=== PATIENT | male | born 1975 | race Caucasian/White ===

== ENCOUNTER 2016-12-22 10:14 | Inpatient (IN) | payer OTHER ==
[~2016-12-22] VITALS: Ht 182.9 cm; Wt 90.7 kg
[2016-12-23 00:10] VITALS: BP 126/65
--- NOTE | 2016-12-23 00:10 | NUR ---
PRE-ADMISSION NOTE SEEN PATIENT IN INTAKE. PATIENT ALERT AND ORIENTED X 4. RESPIRATION EVEN AND UNLABORED. VS BP-126/65 T. P-82 R 16 PA- 5/10 GENERALIZED BODY ACHES. SPO2 AT 98% ON RA. PATIENT AMBULATORY AND HAS STEADY GAIT. PATIENT STATES HE DOES NOT HAVE ANY ALLERGIES TO FOOD AND MEDS .WILL CONTINUE ADMISSION PROCESS. .
--- NOTE | 2016-12-23 00:20 | NUR ---
ADMISSION NOTE PATIENT ARRIVED IN THE UNIT AT THIS TIME. PATIENT IS A 41 YEAR OLD MALE WHO PRESENTS TO [facility] FOR ETOH/METH/COCAINE DEPENDENCE. HEIGHT IS 60 AND WEIGHT IS 200 LBS. BODY CHECK DONE. PATIENT NOTED WITH CUT ON HIS LEFT ARM ,PATIENT STATES HE ACCIDENTALLY CUT HIMSELF WITH A SAW. APPEARS TO BE HEALING. NO S/S OF INFECTION. LUNGS CLEAR AND BOWEL SOUNDS ACTIVE ON ALL QUADRANT. ABDOMEN SOFT AND NON-DISTENDED. PATIENTS BOTH EYES ARE RED. NO DISCHARGE NOTED. PATIENT REQUESTED TO BE FULL CODE AND ON REGULAR DIET. PATIENT DENIES PAST MEDICAL HISTORY. PATIENT STATES HE HAD PINK EYE 6 MONTHS AGO. NO SEIZURE HISTORY. PATIENT IS A BAZAN AND HE LIVES WITH HIS AND 5 KIDS IN [facility]. PATIENT IS THE SOURCE OF INFORMATION . PATIENTS DRUG OF CHOICE ARE FF: ALCOHOL (WHITE WINE)- DRINKING SINCE AGE 15. PATIENT DRINKS 4-6 GLASS DAILY FOR A YEAR. LAST DRINKS WAS 2 BOTTLES OF WHITE WINE AND 3 SHOTS OF WHISKEY METHAMPHETAMINE IV/ORALLY- SINCE AGE 17 . PATIENT USE 1 GRAM DAILY FOR A COUPLE OF MONTHS. LAST USE WAS 1 GRAM ON 1 12/23/16 COCAINE (IV)-SINCE AGE IV/SNORT/ORALLY-SINCE AGE 17. PATIENT INJECTS 1 GRAM DAILY FOR COUPLE OF MONTHS. LAST USE WAS ON 12/18/16 , UNABLE TO RECALL AMOUNT. PATIENT STATES ITS HIS FIRST TIME IN TREATMENT CENTER. PATIENTS PCP IS DR. ARMEN GIANG. PATIENT ADMITTED USING TESTOSTERONE ONCE A WEEK . PATIENT CHEW TOBACCO FOR 17 YEARS. WILL CALL MD AND WILL GIVE DETAIL REPORT. PATIENT ORIENTED TO SURROUNDINGS AND HOW TO USE CALL LIGHT . PATIENT WAS PLACED ON FALL/SEIZURE PRECAUTION . SAFETY MEASURES IN PLACE. CALL LIGHT IN REACH. WILL CONTINUE TO MONITOR. Addendum: 12/23/16 at 0602 by CRISTIN NEGRETE LVN PATIENT BROUGHT HOME MEDS-RECONCILED. PATENT HAS CIWA OF 3 UPON ADMISSION.
[2016-12-23] MEDS ORDERED: ACETAMINOPHEN 325 MG TABLET PO PRN (00:30)
[2016-12-23] MEDS ORDERED: MIRALAX 17 GM POWD.PACK PO PRN (00:30)
[2016-12-23] MEDS ORDERED: THIAMINE HCL 200 MG/2 ML VIAL IM ONE (00:30)
[2016-12-23] MEDS ORDERED: LOPERAMIDE HCL 2 MG CAPSULE PO PRN ×2 (00:30)
[2016-12-23] MEDS ORDERED: LORAZEPAM 1 MG TABLET PO PRN ×2 (00:30)
[2016-12-23] MEDS ORDERED: CLONIDINE HCL 0.1 MG TABLET PO PRN (00:30)
[2016-12-23] MEDS ORDERED: LORAZEPAM 2 MG/1 ML VIAL IM PRN (00:30)
[2016-12-23] MEDS ORDERED: MAG HYDROX/AL HYDROX/SIMETH 30 ML LIQUID UDC PO PRN (00:30)
[2016-12-23] MEDS ORDERED: DICYCLOMINE HCL 20 MG TABLET PO PRN (00:30)
[2016-12-23] MEDS ORDERED: MAGNESIUM HYDROXIDE 30 ML LIQUID UDC PO PRN (00:30)
[2016-12-23] MEDS ORDERED: ONDANSETRON ODT 4 MG TAB.RAPDIS SL PRN (00:30)
[2016-12-23 00:35] LABS: *AMPHETAMINE, URINE POSITIVE (NEGATIVE); *BARBITURATE, URINE NEGATIVE (NEGATIVE); *CANNABINOID, URINE NEGATIVE (NEGATIVE); *COCCAINE, URINE NEGATIVE (NEGATIVE); *OPIATE, URINE NEGATIVE (NEGATIVE); *PHENCYCLIDINE SCREEN,URINE NEGATIVE (NEGATIVE)
[2016-12-23] MEDS: IBUPROFEN 400 MG TABLET PO PRN ×3 (01:13→20:40)
[2016-12-23] MEDS: diphenhydrAMINE 50 MG CAPSULE PO PRN (01:13)
[2016-12-23] MEDS ORDERED: diphenhydrAMINE 50 MG CAPSULE ONE (01:13)
[2016-12-23] MEDS ORDERED: IBUPROFEN 400 MG TABLET ONE (01:13)
--- NOTE | 2016-12-23 01:13 | NUR ---
PRN BENADRYL AND MOTRIN GIVEN PATIENT C/O UNABLE TO SLEEP AND GENERALIZED BODY PAIN 5/10. PRN MEDS GIVEN. WILL MONITOR FOR EFFECTIVENESS
[2016-12-23 01:32] LABS: BASOPHILS % (AUTO) 0.6 % (0.0-2.0); EOSINOPHILS # (AUTO) 0.3 K/uL (0.0-0.7); EOSINOPHILS % (AUTO) 4.7 % (0.0-7.0); HEMATOCRIT 46.3 % (40-50); LYMPHOCYTES # (AUTO) 2.5 K/UL (0.8-4.8); LYMPHOCYTES % (AUTO) 36.9 % (20.5-51.5); MEAN CORPUSCULAR HEMOGLOBIN 30.5 UUG (27.0-31.0); MEAN CORPUSCULAR HGB CONC 35 g/dL (32.0-37.0); MEAN CORPUSCULAR VOLUME 88.2 FL (82.0-92.0); MONOCYTES # (AUTO) 0.6 K/UL (0.1-1.30); MONOCYTES % (AUTO) 9.2 % (0.0-11.0); NEUTROPHILS # (AUTO) 3.5 K/UL (1.8-8.9); NEUTROPHILS % (AUTO) 48.6 % (38.5-71.5); PLATELET COUNT (AUTO) 298 K/UL (150-450); RED BLOOD CELL COUNT(AUTO) 5.25 MIL/UL (4.7-6.1); WHITE BLOOD COUNT (AUTO) 6.9 K/UL (4.0-11.2)
[2016-12-23] MEDS ORDERED: ARGI500T4 PO (01:38)
[2016-12-23] MEDS ORDERED: ZINC (01:38)
[2016-12-23] MEDS ORDERED: OMEG-49 PO (01:38)
[2016-12-23] MEDS ORDERED: GLUC1TAB20 PO (01:38)
[2016-12-23 01:43] LABS: BILIRUBIN,TOTAL 0.5 mg/dL (0.2-1.0); CREATININE 1.1 mg/dL (0.6-1.3); MAGNESIUM 1.8 mg/dL (1.8-2.4); POTASSIUM 3.8 mmol/L (3.5-5.1); TOTAL PROTEIN, SERUM 7.5 g/dL (6.4-8.2)
[2016-12-23 01:53] LABS: THYROID STIMULATING HORMONE 0.528 mIU/mL (0.358-3.740)
--- NOTE | 2016-12-23 02:13 | NUR ---
PRN MEDS RE-ASSESSMENT PATIENT ASLEEP AT THIS TIME. NO S/S OF DISTRESS. WILL CONTINUE TO MONITOR .
[2016-12-23 04:00] VITALS: BP 118/65
--- NOTE | 2016-12-23 07:31 | NUR ---
END OF SHIFT NOTE PATIENT IS A 38 YEAR OLD MALE, ADMITTED FOR ETOH/METH/COCAINE DEPENDENCE. PATIENT IS FULL CODE, REGULAR DIET AND NO KNOWN ALLERGY. PATIENT DENIES ANY PAST MEDICAL HISTORY. DENIES SEIZURE HISTORY. PATIENTS DRUG OF CHOICE ARE ALCOHOL (WHITE WINE) , METHAMPHETAMINE IV/PO AND COCAINE IV/SNORT/SMOKE. FIRST TIME IN DETOX. ON FALL/SEIZURE PRECAUTION. PATIENT WAS GIVEN THIAMINE INJECTION ON RIGHT DELTOID., PRN BENADRYL AND MOTRIN. SLEPT 4 HOURS. FLUID INTAKE OF 1,000 ML. VOIDED X 1. NO BM. LAST CIWA 1.
--- NOTE | 2016-12-23 07:39 | NUR ---
START OF SHIFT NOTE Received report from night nurse, 41 year old male admitted for Cocaine/Meth/ETOH dependence. Full code, NKA, Regular diet. Pt did not report any PMH. Pt received PRN Motrin/ Benadryl effective per night nurse, slept for 4 hours, last CIWA-1. Received pt resting in his room in stable condition, responsive to verbal and tactile stimuli. Skin warm and dry to touch. Breathing normal no SOB noted. All safety measures in place, Call light within reach. Will cont to monitor.
[2016-12-23 08:00] VITALS: BP 114/62
[2016-12-23] MEDS: FOLIC ACID 1 MG TABLET PO SCH (08:28)
[2016-12-23] MEDS: MULTIVITAMINS,THERAPEUTIC TABLET PO SCH (08:28)
[2016-12-23] MEDS: THIAMINE HCL 100 MG TABLET PO SCH (08:29)
[2016-12-23] MEDS ORDERED: TUBERCULIN,PURIF.PROT.DERIV. 5 TU/0.1 ML TEST ID ONE (09:00)
[2016-12-23 12:00] VITALS: BP 105/60
[2016-12-23] MEDS: HYDROXYZINE PAMOATE 25 MG CAPSULE PO PRN (12:27)
--- NOTE | 2016-12-23 12:27 | NUR ---
PRN MEDS Pt reported general body aches 5/10 and anxiety agitation. Administered PRN Motrin 400mg 1 tab Po, Vistaril 50mg Po as ordered. Will cont to monitor and reassess the pt.
[2016-12-23] MEDS: ERYTHROMYCIN 0.5% OPHT OINT 3.5 GM TUBE EACHEYE SCH ×2 (12:55→20:41)
--- NOTE | 2016-12-23 12:55 | NUR ---
NEW ORDER' Pt was seen and evaluated by Dr. Croft with new order of Erythromycin oint for both eye infection, Administered medication as ordered no s/s of adverse reaction noted. Educate the pt for good hand washing and good eye care. Will cont to monitor.
--- NOTE | 2016-12-23 13:27 | NUR ---
REASSESSMENT Pt reported medication effective anxiety, agitation subside and body aches decreased to 2/10. Will cont to monitor.
[2016-12-23] MEDS: LORAZEPAM 1 MG TABLET PO SCH ×2 (14:23→20:41)
[2016-12-23 16:00] VITALS: BP 123/65
--- NOTE | 2016-12-23 19:04 | NUR ---
END OF SHIFT NOTE Gave report to night nurse, 41 year old male admitted for Cocaine/Meth/ETOH dependence. Full code, NKA, Regular diet. Pt did not report any PMH. During shift pt medicated with PRN Motrin/ Vistaril noted to be effective. Pt also started on Erythromycin antibiotic for both eyes infection. Pt started on Ativan taper. VS WNL. Pt remained in stable condition. Breathing normal no SOB noted. Skin warm and dry to touch. Last CIWA-3. Encouraged Po fluids as tolerated. All safety measures in place, Call light within reach. Pt endorsed to night nurse in stable condition.
--- NOTE | 2016-12-23 19:15 | NUR ---
Start of Shift Note: Patient is a 41 y/o male admitted on 12/22/16 for ETOH dependence. Patient reported drinking 4-6 glass of white wine daily for 1 year. Patient also uses Meth IV/PO 1 gram daily & Cocaine 1 gram daily for a couple of months. Patient denies past medical history. No seizure history noted. Patient is on a regular diet with no known food and drug allergies. Full Code status. Fall and Seizure precaution. Patient is on ATB erythromycin ointment for eye redness. Skin intact. Patient started today on a Ativan taper and tolerating well. Last CIWA is 3. Patient was given PRN Motrin and Vistaril during day shift. Patient is alert & oriented x4. Patient in bed with eyes close. No shortness of breath noted. Respiration even & unlabored. Abdomen soft & non-distended. No nausea noted. Patient complains of 5/10 body aches and mild headache. Slight sweating noted. Patient denies hallucinations. Safety precautions are in place. Bed locked in lowest position. Both side rails up. Call light within pts reach. Will continue to monitor patient.
[2016-12-23 20:00] VITALS: BP 111/57
--- NOTE | 2016-12-23 20:40 | NUR ---
PRN Motrin Patient complains of 5/10 body aches and mild headache. PRN Motrin administered as ordered. Will reassess in 1 hour. Will continue to monitor patient.
--- NOTE | 2016-12-23 21:40 | NUR ---
PRN Reassessment Patient asleep at this time and appears comfortable. No facial grimacing noted. Safety precautions are in place. Will continue to monitor.
[2016-12-24] VITALS: BP 109/65
[2016-12-24 04:00] VITALS: BP 119/64
[2016-12-24] MEDS: ERYTHROMYCIN 0.5% OPHT OINT 3.5 GM TUBE EACHEYE SCH ×3 (05:24→21:02)
--- NOTE | 2016-12-24 07:00 | NUR ---
Start of Shift Report from night nurse: pt is a41 y.o male here for Etoh r/t 4-6 glasses of Wine per day for a yr, Methamphetamine 1gIV /d for a few months and Cocaine abuse IV, snorted or smoked 1g/d for a couple of months; 4 day Ativan taper ordered, and no Subutex ordered to start until 12/24/16 after evaluation. Pt is a full code, regular diet, NKA, fall and seizure precautions ordered. HHx: first time doing detox pt is a non-smoker and denies past medical hx and no surgical hx. V/S stable. Skin is intact, yet pt has bilateral eye inflammation with ordered topical atbx eye gtts scheduled and a a scar on the left arm from a past cut that is healing. PRN Motrin given last night for a STACK. No new orders, labs or recommendations endorsed to me. Last CIWA 5. Pt is asleep in his room. Will cont. to monitor the pt.
--- NOTE | 2016-12-24 07:16 | NUR ---
End of Shift Note: Endorse pt to day shift nurse. Pt continues on his Ativan taper and tolerating well. Patient is on ATB erythromycin ointment for eye redness. Patient has been in his room my whole shift. Patient is compliant with medications, treatment and plan of care. Pt reported taper medications is effective in controlling his withdrawal symptoms. Last CIWA is 4. PRN Motrin given last night for headache and was effective. Pt remained stable and vitals remains WNL. Pt slept for a total of 11 hours. Encourage pt to increase Pt consumed 520ml of fluid. Voided 1x with no bowel movement. All needs attended & met. Safety precautions are in place Will continue to monitor patient.
[2016-12-24 08:00] VITALS: BP 89/65
[2016-12-24 08:11] LABS: HEPATITIS B SURFACE AG Negative (Negative)
[2016-12-24] MEDS: IBUPROFEN 400 MG TABLET PO PRN ×3 (09:02→21:02)
[2016-12-24] MEDS: THIAMINE HCL 100 MG TABLET PO SCH (09:02)
[2016-12-24] MEDS: FOLIC ACID 1 MG TABLET PO SCH (09:02)
[2016-12-24] MEDS: MULTIVITAMINS,THERAPEUTIC TABLET PO SCH (09:02)
[2016-12-24] MEDS: LORAZEPAM 1 MG TABLET PO SCH ×4 (09:02→21:02)
--- NOTE | 2016-12-24 09:05 | NUR ---
PRN Medication Administration Pt c/o STACK and general discomfort 10 with numbness and tingling; PRN Motrin 400mg PO PRN as ordered. Will reassess in 1H.
--- NOTE | 2016-12-24 10:00 | NUR ---
Reassessment Pt denies STACK; PRN Motrin is effective, will f/u with re: numbness and tingling.
[2016-12-24 12:00] VITALS: BP 102/56
--- NOTE | 2016-12-24 13:45 | NUR ---
PRN Medication Administration Pt c/o recurrent STACK; PRN Tylenol 650mg given as ordered. Will reassess in 1H.
--- NOTE | 2016-12-24 14:30 | NUR ---
Reassessment Pt denies STACK; Tylenol is effective. Will cont. to monitor the pt.
[2016-12-24 16:00] VITALS: BP 118/65
--- NOTE | 2016-12-24 16:40 | NUR ---
PRN Medication Administration Pt c/o general muscle discomfort with the numbness and tingling; Notified Dr. Massey of numbness and tingling, PRN Motrin 400mg given as ordered. Will reassess in 1H.
--- NOTE | 2016-12-24 19:27 | NUR ---
End of Shift Report to the night nurse: pt is a41 y.o male here for Etoh r/t 4-6 glasses of Wine per day for a yr, Methamphetamine 1gIV /d for a few months and Cocaine abuse IV, snorted or smoked 1g/d for a couple of months; 4 day Ativan taper ordered, and no SUbutex ordered to start until 12/24/16 after evaluation. Pt is a full code, regular diet, NKA, fall and seizure precautions ordered. HHx: first time doing detox pt is a non-smoker and denies past medical hx and no surgical hx. V/S stable. Skin is intact, yet pt has bilateral eye inflammation with ordered topical atbx eye gtts given as ordered and educated the pt on bilater eye hygiene and to irrigated with NS pat dry tid and HS and pt is cooperative; a scar on the left arm from a past cut that is healing. PRN Motrin given twice with last dose at 1640p and Tylenol for a STACK and general pain. No new orders, labs during my shift. Pt denies chest pain. No SOB noted. No hallucinations, delusions or suicidal ideations. Pt is w/d to self and refuses to go to group therapy during my shift; encouragement given. Last CIWA 4.
--- NOTE | 2016-12-24 19:30 | NUR ---
Start of Shift Note: Patient is a 41 y/o male admitted on 12/22/16 for ETOH dependence. Patient reported drinking 4-6 glass of white wine daily for 1 year. Patient also uses Meth IV/PO 1 gram daily & Cocaine 1 gram daily for a couple of months. Patient denies past medical history. No seizure history noted. Patient is on a regular diet with no known food and drug allergies. Full Code status. Fall and Seizure precaution. Patient is on ATB erythromycin ointment for eye redness. Skin intact. Patient has new order Gabapentin. Patient is on Ativan taper and tolerating well. Last CIWA is 4. Patient was given PRN Motrin x2 and Tylenol during day shift. Patient is alert & oriented x4. Patient in bed with eyes close. No shortness of breath noted. Respiration even & unlabored. Abdomen soft & non-distended. No nausea noted. Patient complains of mild headache. Slight sweating noted. Patient denies hallucinations. Safety precautions are in place. Bed locked in lowest position. Both side rails up. Call light within pt's reach. Will continue to monitor patient.
[2016-12-24 20:00] VITALS: BP 116/65
[2016-12-24] MEDS ORDERED: GABAPENTIN 300 MG CAPSULE PO SCH (21:00)
[2016-12-24] MEDS: diphenhydrAMINE 50 MG CAPSULE PO PRN (21:02)
--- NOTE | 2016-12-24 21:02 | NUR ---
PRN Motrin & Benadryl Patient complains of 4/10 body aches and mild headache. Pt also requested medication to help him sleep. PRN Motrin and Benadryl administered as ordered. Will reassess in 1 hour. Will continue to monitor.
--- NOTE | 2016-12-24 22:02 | NUR ---
PRN Reassessment Patient asleep in bed at this time and appears comfortable. No facial grimacing noted. Safety measures in place. Will continue to monitor patient.
[2016-12-25] VITALS: BP 122/74
[2016-12-25 04:00] VITALS: BP 106/63
[2016-12-25] MEDS: ERYTHROMYCIN 0.5% OPHT OINT 3.5 GM TUBE EACHEYE SCH ×3 (05:11→20:32)
--- NOTE | 2016-12-25 06:57 | NUR ---
End of Shift Note: Endorse pt to day shift nurse. Pt on Ativan taper and tolerating well. Patient continues on ATB erythromycin ointment for eye redness. Patient has been in his room the whole shift. Patient is compliant with medications, treatment and plan of care. Pt reported taper medications is effective in controlling his withdrawal symptoms. Per, pt he will be attending groups today. Last CIWA is 2. PRN Motrin given last night for headache and Benadryl for sleep and were effective. Pt remained stable and vitals remains WNL. Pt slept for a total of 8 hours. Encourage pt to increase Pt consumed 1000ml of fluid. Voided 1x with no bowel movement. All needs attended & met. Safety precautions are in place Will continue to monitor patient.
--- NOTE | 2016-12-25 07:00 | NUR ---
Start of Shift Notes: Received patient in his room. Alert and oriented x 4. Able to make his needs known. Respirations even and unlabored. No SOB noted. Skin warm and dry to touch. Abdomen soft and non-distended with (+) BS in all 4 quadrants. No complains of N/V/D or constipation noted. Bladder non-distended. No complains of dysuria noted. Voids independently. Ambulatory ad meredith with steady gait. Patient is a 41 year old male admitted for ETOH dependence who was placed on a 4-day Ativan taper. No adverse reactions noted. Denies any past medical hx. NKA. FULL CODE. Regular diet. On fall and seizure precautions. Educated patient on his current plan of care and his medication regimen. Encouraged oral fluid intake and encouraged group participation to learn new skills to prevent relapse. Will continue to monitor closely.
[2016-12-25 08:00] VITALS: BP 126/74
[2016-12-25] MEDS: THIAMINE HCL 100 MG TABLET PO SCH (08:27)
[2016-12-25] MEDS: MULTIVITAMINS,THERAPEUTIC TABLET PO SCH (08:27)
[2016-12-25] MEDS: GABAPENTIN 300 MG CAPSULE PO SCH ×2 (08:27→14:30)
[2016-12-25] MEDS: LORAZEPAM 1 MG TABLET PO SCH ×3 (08:27→20:32)
[2016-12-25] MEDS: FOLIC ACID 1 MG TABLET PO SCH (08:27)
[2016-12-25 12:00] VITALS: BP 126/74
--- NOTE | 2016-12-25 12:19 | NUR ---
Zofran 4 mg PO and Clonidine 0.1mg PO given: Patient noted with CIWA 9 due to nausea/vomiting x 2. Also noted with anxiety, gross tremors and facial flushing with mild agitation. Medicated patient with Zofran 4 mg ODT and Clonidine 0.1mg PO as ordered. Will monitor for effectiveness.
--- NOTE | 2016-12-25 13:19 | NUR ---
Re-assessment: No further episodes of emesis noted. Complains of nausea. Less anxiety, less tremors and less sweating noted. Patient showered and states that he feels better.
[2016-12-25 16:00] VITALS: BP 101/57
--- NOTE | 2016-12-25 18:52 | NUR ---
End of Shift Notes: Patient is a 31 year old male admitted for ETOH dependence who was placed on a 4-day Ativan taper as ordered. No adverse reactions noted. Denies any past medical hx. Currently on Erythromycin ointment for OU redness. No adverse reactions. Educated patient on good eye care. Prior to admission, patient was using 4-6 glasses of white wine for 1 year, 1 gram of methamphetamine and 1gram of cocaine. Withdrawal symptoms were closely monitored. Initial CIWA 2, patient presented with anxiety and mild agitation. VS monitored q 4 hours. No significant abnormalities noted. At 1219, patient noted with with episodes of vomiting, nausea, tremors, anxiety and sweats. CIWA 9, medicated patient with Zofran 4 mg ODT and Clonidine 0.1mg PO at 1219 with help after 1 hour. Patient was encouraged to go to group and socialize with his peers due to episodes of self isolation and is socially withdrawn. Last CIWA 4. Per patient Ativan has been helping him with his withdrawal symptoms. Oral fluids encouraged. All needs met and attended. Will continue to monitor closely. Addendum: 12/25/16 at 1852 by HERMINIA BRICENO LVN Error. Patient is 41 years old.
--- NOTE | 2016-12-25 19:15 | NUR ---
Start of Shift Note: Patient is a 41 y/o male admitted on 12/22/16 for ETOH dependence. Patient reported drinking 4-6 glass of white wine daily for 1 year. Patient also uses Meth IV/PO 1 gram daily & Cocaine 1 gram daily for a couple of months. Patient denies past medical history. No seizure history noted. Patient is on a regular diet with no known food and drug allergies. Full Code status. Fall and Seizure precaution. Patient continues on ATB erythromycin ointment for eye redness. Skin intact. Patient is on Ativan taper and tolerating well. Last CIWA is 4. Patient was given PRN Clonidine and Zofran during day shift. Patient is alert & oriented x4. No shortness of breath noted. Respiration even & unlabored. Abdomen soft & non-distended. No nausea noted. Patient complains of very mild headache. Pt denies sweating & anxiety. No hallucinations noted. Hand tremors felt Safety precautions are in place. Bed locked in lowest position. Both side rails up. Call light within pt's reach. Will continue to monitor patient.
[2016-12-25 20:00] VITALS: BP 117/63
[2016-12-25] MEDS: diphenhydrAMINE 50 MG CAPSULE PO PRN (20:33)
--- NOTE | 2016-12-25 20:33 | NUR ---
PRN Benadryl Patient requesting for medication to help him sleep. PRN Benadryl administered as ordered. Will continue to monitor patient.
[2016-12-25] MEDS ORDERED: GABAPENTIN 300 MG CAPSULE PO SCH (21:00)
--- NOTE | 2016-12-25 22:00 | NUR ---
PRN Reassessment Patient asleep in bed and appears comfortable. No shortness of breath noted. Respiration even & unlabored. Safety measures in place. Will continue to monitor patient.
[2016-12-26] VITALS: BP 95/64
[2016-12-26 04:00] VITALS: BP 111/65
[2016-12-26] MEDS: ERYTHROMYCIN 0.5% OPHT OINT 3.5 GM TUBE EACHEYE SCH ×3 (05:17→21:02)
--- NOTE | 2016-12-26 07:10 | NUR ---
Start of Shift Report from night nurse with update: pt is a 41 y.o male here for Etoh r/t 4-6 glasses of Wine per day for a yr, Methamphetamine 1gIV /d for a few months and Cocaine abuse IV, snorted or smoked 1g/d for a couple of months; 4 day Ativan taper ordered, and no Subutex ordered to start until 12/24/16 after evaluation. Pt is a full code, regular diet, NKA, fall and seizure precautions ordered. HHx: first time doing detox pt is a non-smoker and denies past medical hx and no surgical hx. V/S stable. Skin is intact, but pt still has active bilateral eye inflammation with ordered topical atbx eye gtts scheduled; pt still irrigates his eyes with NS as directed for eye hygiene and pt has a scar on the left arm from a past cut that is healing.PRN Benadryl given last night. No new orders, labs or recommendations endorsed to me. Last CIWA 2. Pt is asleep in his room. Will cont. to monitor the pt.
--- NOTE | 2016-12-26 07:15 | NUR ---
End of Shift Note: Endorse pt to day shift nurse. Pt on Ativan taper and tolerating well. Patient continues on ATB erythromycin ointment for eye redness. Patient has been in his room the whole shift. Patient is compliant with medications, treatment and plan of care. Pt reported taper medications is effective in controlling his withdrawal symptoms. Pt attended one group yesterday. Encourage to attend groups today to develop and learn new coping skills. Last CIWA is 2. PRN Benadryl given for sleep and were effective. Pt remained stable and vitals remains WNL. Pt slept for a total of 7 hours. Encourage pt to increase fluid intake. Pt consumed 1500ml of fluid. Voided 2x with no bowel movement. All needs attended & met. Safety precautions are in place Will continue to monitor patient.
[2016-12-26 08:00] VITALS: BP 123/75
[2016-12-26] MEDS: IBUPROFEN 400 MG TABLET PO PRN (09:25)
[2016-12-26] MEDS: LORAZEPAM 1 MG TABLET PO SCH ×2 (09:25→20:53)
[2016-12-26] MEDS: MULTIVITAMINS,THERAPEUTIC TABLET PO SCH (09:25)
[2016-12-26] MEDS: FOLIC ACID 1 MG TABLET PO SCH (09:25)
[2016-12-26] MEDS: THIAMINE HCL 100 MG TABLET PO SCH (09:25)
[2016-12-26] MEDS: GABAPENTIN 300 MG CAPSULE PO SCH ×3 (09:25→20:55)
--- NOTE | 2016-12-26 09:25 | NUR ---
PRN Mediation Administration Pt c/o chronic STACK; PRN Motrin 400mg given as ordered. Will reassess in 1H.
--- NOTE | 2016-12-26 10:25 | NUR ---
Reassessment Pt states STACK discomfort has decreased; PRN Motrin is somewhat effective, pt refused Tylenol. I encouraged the pt to call if he needs PRN Tylenol. Call light is in reach. Will cont. to monitor the pt.
[2016-12-26 12:00] VITALS: BP 142/79
[2016-12-26] MEDS: HYDROXYZINE PAMOATE 25 MG CAPSULE PO PRN ×2 (12:04→21:00)
--- NOTE | 2016-12-26 12:09 | NUR ---
PRN Medication Administration Pt is in room on bed very restless and anxious; PRN Vistaril given with scheduled eye ointment atbx given as ordered. Will reassess in 1H.
--- NOTE | 2016-12-26 13:38 | NUR ---
Reassessment Pt is in room eating lunch and denies anxiety; PRN Vistaril 50mg is effective. Will cont. to monitor the pt.
[2016-12-26 16:00] VITALS: BP 120/70
[2016-12-26] MEDS: CLONIDINE HCL 0.1 MG TABLET PO SCH ×2 (16:26→20:54)
--- NOTE | 2016-12-26 16:29 | NUR ---
Late Medication Administration 1500 Clonidine and Gabapentin given late since pt just got out of group.
--- NOTE | 2016-12-26 18:52 | NUR ---
End of Shift Report to night nurse: pt is a41 y.o male here for Etoh r/t 4-6 glasses of Wine per day for a yr, Methamphetamine 1gIV /d for a few months and Cocaine abuse IV, snorted or smoked 1g/d for a couple of months; 4 day Ativan taper ordered, and no Subutex ordered to start until 12/24/16 after evaluation. Pt is a full code, regular diet, NKA, fall and seizure precautions ordered. HHx: first time doing detox pt is a non-smoker and denies past medical hx and no surgical hx. V/S stable. Skin is intact, yet pt has bilateral eye inflammation with ordered topical atbx eye ointment given as ordered on bilateral eyes with NS irrigations before applying the topical atbx; a scar on the left arm from a past cut that is healing. PRN Motrin given at 0925 for a STACK and Vistaril 50mg at 1215p. No new orders or labs during my shift. Pt denies chest pain. No SOB noted. No hallucinations, delusions or suicidal ideations. Pt attended group therapy and activities during my shift. Last CIWA 2.
[2016-12-26 20:00] VITALS: BP 121/65
--- NOTE | 2016-12-26 20:00 | NUR ---
2000 Patient received awake, alert and lying supinely watching television. Patient responds to nurse's greeting with, " Kalin" Patient's color is pink and his skin is warm, dry and intact. Bilateral eye lids, top/bottom noted very slightly swollen and red Bilateral eye sclera noted moderately reddened. Patient denies any eye pain presently and he states, " Oh, you should have seen them before. My eyes are looking much better now". Patient is oriented to person, place, day, date, time and his personal situation. Vital signs are: 98.6-72-16 121/65, O2 Sat 98%, CIWA 1. Patient states that he has been doing "fine", going to [facility] groups, taking his regular diet trays and ad meredith fluids well with no real gastric issues noted. Patient was admitted on 12/22/16 for: Alcohol, Methamphetamine and Cocaine withdrawal and he is currently on a 4-Day Ativan medication taper, which he has apparently been tolerating well. Patient offers no requests or c/o anything at this time. Bed is locked and in lowest position, bed rails are up X 2 and call light within patient's easy reach.
[2016-12-26] MEDS: diphenhydrAMINE 50 MG CAPSULE PO PRN (21:00)
--- NOTE | 2016-12-26 21:00 | NUR ---
PRN MEDICATIONS: Prn Benadryl 50 mg p.o. given per request for sleep medication and Prn Vistaril 50 mg p.o. given per request for anxiety.
--- NOTE | 2016-12-26 22:00 | NUR ---
REASSESSMENT PRN MEDICATIONS: Patient is resting comfortably with eyes closed and respirations quiet, even at 14.
--- NOTE | 2016-12-27 | NUR ---
Patient refused to be awakened for V/S to be done at this time.
[2016-12-27 04:00] VITALS: BP 123/67
[2016-12-27] MEDS: ERYTHROMYCIN 0.5% OPHT OINT 3.5 GM TUBE EACHEYE SCH ×3 (04:22→20:33)
--- NOTE | 2016-12-27 06:30 | NUR ---
0630 Patient slept a total of 6 hours, 15 minutes, and he had 2 voids and no stools. Total intake was 950 ml p.o. Prn medications given noted separately per floor protocol. V/SS afebrile, last CIWA 4. There is no change in condition of patient's reddened eyes and eyelids. Patient is friendly, cooperative and verbally appropriate when awake and interacting with nurse. Patient is presently sleeping soundly in stable condition with eyes closed and respirations even at 12.
--- NOTE | 2016-12-27 07:43 | NUR ---
BEGINNING OF SHIFT Patient endorsement report received from overnight stocker nurse, all pertinent information discussed. Patient is a 41 year old male admitted on 12/22/2016, with admitting Dx: ETOH dependence. Patient completed 4 day Ativan taper as of 12/26/2016 and is under close supervision for s/sx of withdrawal, will monitor ciwa scores and vital signs as ordered. Patient with last ciwa score of: 6, as per overnight stocker. Patient received PRN: Benadryl, and Vistaril during overnight stocker, medications were effective, patient slept for 6 hours. Patient received in room, awake alert and oriented x4, educated regarding plan of care and medication regimen for the day with good verbal understanding. Safety measures in place. call light kept with in reach, will continue to monitor closely.
[2016-12-27 08:18] VITALS: BP 113/64
[2016-12-27] MEDS: FOLIC ACID 1 MG TABLET PO SCH (08:51)
[2016-12-27] MEDS: GABAPENTIN 300 MG CAPSULE PO SCH ×3 (08:51→20:33)
[2016-12-27] MEDS: MULTIVITAMINS,THERAPEUTIC TABLET PO SCH (08:51)
[2016-12-27] MEDS: THIAMINE HCL 100 MG TABLET PO SCH (08:51)
[2016-12-27 08:52] VITALS: BP 122/72
[2016-12-27] MEDS: CLONIDINE HCL 0.1 MG TABLET PO SCH ×3 (08:53→20:33)
[2016-12-27] MEDS: IBUPROFEN 400 MG TABLET PO PRN (11:53)
--- NOTE | 2016-12-27 11:53 | NUR ---
PRN MOTRIN Patient c/o headache 12/26, provided with non pharmacological interventions with no relief, administered Motrin as ordered, will monitor effectiveness.
--- NOTE | 2016-12-27 12:53 | NUR ---
MOTRIN REASSESSMENT Patient reports medication with relief, current pain level 1/10, tolerable as per patient, encouraged adequate PO fluid intake as tolerated, will continue to monitor closely.
[2016-12-27 13:29] LABS: *AMPHETAMINE, URINE NEGATIVE (NEGATIVE); *BARBITURATE, URINE NEGATIVE (NEGATIVE); *CANNABINOID, URINE NEGATIVE (NEGATIVE); *COCCAINE, URINE NEGATIVE (NEGATIVE); *OPIATE, URINE NEGATIVE (NEGATIVE); *PHENCYCLIDINE SCREEN,URINE NEGATIVE (NEGATIVE)
[2016-12-27 13:32] VITALS: BP 129/70
[2016-12-27] MEDS: NICOTINE POLACRILEX 4 MG GUM-PK OF TEN BC PRN ×2 (15:29→18:24)
--- NOTE | 2016-12-27 15:29 | NUR ---
PRN NICOTINE Patient c/o nicotine cravings, administered nicotine gum as ordered, will monitor effectiveness of medication.
--- NOTE | 2016-12-27 16:29 | NUR ---
NICOTINE REASSESSMENT Patient reports medication with relief, will continue to monitor closely.
[2016-12-27 17:41] VITALS: BP 137/70
[2016-12-27] MEDS ORDERED: HYDR-3895 PO (17:51)
[2016-12-27] MEDS ORDERED: GABA-534 PO (17:51)
[2016-12-27] MEDS ORDERED: CLON0.1T14 PO (17:51)
[2016-12-27] MEDS ORDERED: DIPH50CA37 PO (17:51)
[2016-12-27] MEDS ORDERED: NICO4GUM BC (17:51)
--- NOTE | 2016-12-27 19:09 | NUR ---
START OF SHIFT NOTE: Patient is a 41 year male admitted to [facility] on 12/22/16 for Benzodiazepines and Alcohol Dependence. Patient completed without adverse effects 4 Day Ativan Taper on 12/27/16, which tolerated well. Patient remains compliant with therapy, medications, and diet regimen. Patient reports NKA. Patient is has Full Code and Regular Diet. Patient is on Fall and Seizures Precautions. Patient reports NKA. Patient is has Full Code and Regular Diet. Patient is on Fall and Seizures Precautions. Patient denies past Seizures History. PMH: Anxiety, Depression, Alcohol use disorder, Cocaine use disorder, Viral conjunctivitis, Stimulant use disorder. Patient reports "first time in Detox". Upon endorsement, patient is on Activities Groups. Last CIWA at 1742 is 1. Patient presented with mild anxiety during day shift, and denies SI/HI, as reported day shift Nurse. Patient has VS WNL, and stable during day shift. Patient will discharging tomorrow. UDS Test results placed in chart. All needs met. Safety measures in the place. Call light within reach, bed in the lowest position and locked, padded rails up x2. Report received from day shift nurse. Will continue to monitor closely. Addendum: 12/27/16 at 2257 by IZABEL JACINTO RN Patient has Full Code and Regular Diet. Addendum: 12/27/16 at 2328 by IZABEL JACINTO RN Patient has healing cut on his left arm. No s/s of infection noted. Picture placed in chart. Skin is warm and dry to touch.
--- NOTE | 2016-12-27 19:09 | NUR ---
END OF SHIFT Patient alert and oriented x4, vital signs were stable during shift. patient compliant with therapeutic plan of care. 0900 assessment patient presented with: mild anxiety with ciwa score of: 1. 1300 assessment patient presented with mild anxiety with ciwa score of: 1; 1700 assessment patient presented with mild anxiety with ciwa score of: 1. Patient received PRN: Nicotine gum x2 and Motrin, all medications were effective. patient continues on ATB for bilateral eye infection, no ASE noted, responding well to ATB, decrease in redness of eyes. no eye discharge noted. patient is scheduled to be discharged tomorrow, noted self motivated towards sobriety. Patient encouraged to attend group therapies/sessions to learn new coping skills to prevent relapse. patient denies any SI/HI. safety measures in place. call light kept with in reach. patient endorsed to mica plate layer nurse, all pertinent information discussed. will continue to monitor closely.
[2016-12-27 20:00] VITALS: BP 134/80
[2016-12-27] MEDS: diphenhydrAMINE 50 MG CAPSULE PO PRN (20:40)
--- NOTE | 2016-12-27 20:40 | NUR ---
PRN BENADRYL PO 50 MG 1 CAPS ADMINISTRATION Patient c/o insomnia and ask aid. Patient assessed. VS WNL. PRN Benadryl PO discussed with patient. Patient's educated for actions, adverse reactions, and side effects of Benadryl. Patient returned back knowledge by verbalized understanding. PRN Benadryl PO 50 mg 1 caps administrated as ordered with full glass of water. All needs met. Safety measures in the place. Call light within reach, bed in the lowest position, and locked, padded bed rails up x2. Will continue to monitor closely.
--- NOTE | 2016-12-27 21:40 | NUR ---
RE-ASSESSMENT Patient is sleeping. Respirations even and unlabored. RR: 16. PRN Benadryl PO was effective. All needs met. Safety measures in the place. Call light within reach, bed in the lowest position, and locked, padded bed rails up x2. Will continue to monitor closely.
[2016-12-28] VITALS: BP 106/50
[2016-12-28] MEDS: HYDROXYZINE PAMOATE 25 MG CAPSULE PO PRN ×2 (03:51→08:16)
--- NOTE | 2016-12-28 03:51 | NUR ---
PRN VISTARIL PO 50 MG 2 CAPS ADMINISTRATION Patient c/o increased anxiety. Patient asked aid. Patient assessed. CIWA 3. VS WNL. PRN Vistaril PO discussed with patient. Patient's educated for actions, adverse reactions, and side effects of Vistaril. Patient returned back his knowledge by verbalized understanding. PRN Vistaril PO 50 mg 2 caps administrated as ordered with full glass of water. All needs met. Safety measures in the place. Call light within reach, bed in the lowest position, and locked, padded bed rails up x2. Will continue to monitor closely.
[2016-12-28 04:00] VITALS: BP 112/56
--- NOTE | 2016-12-28 04:51 | NUR ---
RE-ASSESSMENT Patient is sleeping. Respirations even and unlabored. RR:16. PRN Vistaril PO was effective. All needs met. Safety measures in the place. Call light within reach, bed in the lowest position, and locked, padded bed rails up x2. Will continue to monitor closely.
[2016-12-28] MEDS: ERYTHROMYCIN 0.5% OPHT OINT 3.5 GM TUBE EACHEYE SCH (05:03)
--- NOTE | 2016-12-28 07:27 | NUR ---
END OF SHIFT NOTE: Patient endorsed to day shift nurse. Report given. Patient is a 41 year male admitted to [facility] on 12/22/16 for Benzodiazepines and Alcohol Dependence. Patient completed without adverse effects 4 Day Ativan Taper on 12/27/16, which tolerated well. Patient remains compliant with therapy, medications, and diet regimen. Patient reports NKA. Patient is has Full Code and Regular Diet. Patient is on Fall and Seizures Precautions. Patient denies past Seizures History. PMH: Anxiety, Depression, Alcohol use disorder, Cocaine use disorder, Viral conjunctivitis, Stimulant use disorder. Patient reports "first time in Detox". Last CIWA at 0400 decreased from 4 to 1. During delicatessen clerk patient presented with the following withdrawal s/s of Anxiety, Agitation, Nervousness, Restlessness, Diaphoresis, and Tremors. VS at 0400: T:97.4, HR:58, BP: 112/56, RA O2 SAT: 98%, RR: 16. Respiration is even and unlabored. Patient has healing cut on his left arm. No s/s of infection noted. Picture placed in chart. Skin is warm and dry to touch. Encourage to fluids intake, as tolerated. PRN Benadryl 50 mg 1 caps. PO and PRN Vistaril 50 mg 2 caps. PO administrated for insomnia and anxiety, and were effective. Patient slept 3 hours, intake 1250 ml, voided x 2. Patient remains compliant with treatment plan, medications, and diet regimen. Patient's educated of relaxation skills. Patient attended activities and therapy groups regularly. Patient will discharging today. UDS Test results placed in chart. All needs met. Safety measures in the place. Call light within reach, bed in the lowest position and locked, padded rails up x2.
--- NOTE | 2016-12-28 07:30 | NUR ---
start of shift note: received pt from fast food shift lead nurse, pt is in stable condition at this time. pt without s/s of pain or discomfort. pt is admitted to [facility] for ETOH/METH withdrawal/dependence. pt slept for 3 hrs. will assit pt in discharging and will continue to monitor pt for any changes
[2016-12-28] MEDS: NICOTINE POLACRILEX 4 MG GUM-PK OF TEN BC PRN (08:08)
[2016-12-28] MEDS: MULTIVITAMINS,THERAPEUTIC TABLET PO SCH (08:16)
[2016-12-28 08:17] VITALS: BP 120/78
[2016-12-28] MEDS: FOLIC ACID 1 MG TABLET PO SCH (08:17)
[2016-12-28] MEDS: CLONIDINE HCL 0.1 MG TABLET PO SCH (08:17)
[2016-12-28] MEDS: THIAMINE HCL 100 MG TABLET PO SCH (08:17)
[2016-12-28] MEDS: GABAPENTIN 300 MG CAPSULE PO SCH (08:17)
--- NOTE | 2016-12-28 10:05 | NUR ---
discharge note: pt left the unit in stable condition, no s/s of withdrawal, pain or discomfort. pt teaching was administered and pt verbalized understanding. pt's v/s wnl. Pt will be transferred to [facility] via private car
== END 2016-12-28 10:05 | disposition other institution (70) | DRG 895 ==
LOC: SRC 23:37
PROVIDERS: ADMIT Internal Medicine; ATTEND Internal Medicine
PROC: HZ2ZZZZ Detoxification Services for Substance Abuse Treatment (ICD-10-PCS; principal; 2016-12-22)
PROC: HZ31ZZZ Individual Counseling for Substance Abuse Treatment, Behavioral (ICD-10-PCS; 2016-12-24)
PROC: HZ41ZZZ Group Counseling for Substance Abuse Treatment, Behavioral (ICD-10-PCS; 2016-12-25)
DX: F10.230 Alcohol dependence with withdrawal, uncomplicated (principal); F15.10 Other stimulant abuse, uncomplicated; F14.10 Cocaine abuse, uncomplicated; Y90.9 Presence of alcohol in blood, level not specified; B30.9 Viral conjunctivitis, unspecified; A49.9 Bacterial infection, unspecified; F17.220 Nicotine dependence, chewing tobacco, uncomplicated
CPT/HCPCS: 36415; 70030-TC; 80307; 80324; 83690; 83735; 84443; 85025; 86580; 87340; 87806; G0480; J3411; Q0162; Q0163